=== PATIENT | female | born 1940 | race Caucasian/White ===

== ENCOUNTER 2022-03-01 10:43 | Emergency (ER) | payer OTHER ==
[~2022-03-01] VITALS: Ht 162.6 cm; Wt 59.0 kg
--- NOTE | 2022-03-01 10:45 | NUR ---
PT IN BED ABLE TO ANSWER QUESTIONS AND MAKE NEEDS KNOWN. ON ROOM AIR BREATHING IS EVEN AND UNLABORED. HX OF ARTHRITIS AND HAS FALLEN TWICE. NO OBSERVABLE INJURIES TO THE BODY. COMPLAINS OF PAIN ON THE HEAD CT ORDERED.
--- NOTE | 2022-03-01 11:33 | NUR ---
TRANSPORT ARRIVED TO TAKE PT FOR HEAD CT
[2022-03-01 11:34] LABS: BASOPHILS # (AUTO) 0.1 K/uL (0.0-0.2); BASOPHILS % (AUTO) 0.6 % (0.0-2.0); EOSINOPHILS % (AUTO) 1.6 % (0.0-6.0); HEMATOCRIT 28 % (33-45); HEMOGLOBIN 8.9 g/dL (11.5-14.8); LYMPHOCYTES # (AUTO) 0.9 K/uL (0.8-4.8); LYMPHOCYTES % (AUTO) 9.7 % (20.0-44.0); MEAN CORPUSCULAR HGB CONC 32 g/dl (31.0-36.0); MEAN CORPUSCULAR VOLUME 81 fL (82-100); MONOCYTES # (AUTO) 0.6 K/uL (0.1-1.30); MONOCYTES % (AUTO) 6.5 % (2.0-12.0); NEUTROPHILS # (AUTO) 7.8 K/uL (1.8-8.9); NEUTROPHILS % (AUTO) 81.6 % (43.0-81.0); PLATELET COUNT (AUTO) 220 K/uL (150-450); RED BLOOD CELL COUNT(AUTO) 3.44 MIL/uL (4.0-5.2); WHITE BLOOD COUNT (AUTO) 9.5 K/uL (4.3-11.0)
[2022-03-01 11:42] LABS: CALCIUM, SERUM 8.6 mg/dL (8.5-10.1); CARBON DIOXIDE 28 mmol/L (21-32); CHLORIDE 103 mmol/L (98-107); GLUCOSE 110 mg/dL (74-106); POTASSIUM 3.7 mmol/L (3.5-5.1); SODIUM SERUM 137 mmol/L (136-145); UREA NITROGEN, BLOOD 19 mg/dL (7-18)
[2022-03-01 11:49] LABS: ALANINE AMINOTRANSFERASE 18 U/L (12-78); ALBUMIN 3.3 g/dL (3.4-5.0); ALKALINE PHOSPHATASE 66 U/L (46-116); ASPARTATE AMINOTRANSFERASE 27 U/L (15-37); BILIRUBIN,DIRECT 0.1 mg/dL (0.0-0.2); BILIRUBIN,TOTAL 0.2 mg/dL (0.2-1.0); TOTAL PROTEIN, SERUM 6.4 g/dL (6.4-8.2)
--- NOTE | 2022-03-01 13:30 | NUR ---
CALLED [facility], AWAITING MD CALL BACK
--- NOTE | 2022-03-01 14:25 | NUR ---
URINE AND COVID COLLECTED
--- NOTE | 2022-03-01 15:01 | NUR ---
AWAITING COVID,URINE, AND REPEAT TROP LEVELS BEFORE TRANSFER TO [employer]
[2022-03-01 15:35] LABS: BILIRUBIN,URINE NEGATIVE (NEGATIVE); COLOR,URINE YELLOW (YELLOW); LEUKOCYTE ESTERASE ,URINE NEGATIVE (NEGATIVE); NITRITE, URINE NEGATIVE (NEGATIVE); PROTEIN,URINE NEGATIVE (NEGATIVE); UGLUCOSE NEGATIVE (NEGATIVE); UROBILINOGEN,URINE 0.2 EU/dL (0.2)
--- NOTE | 2022-03-01 16:18 | NUR ---
PT ACCEPTED TO [facility] ED UNDER THE CARE OF DR. VEGA GIVE REPORT TO [phone] [facility] ETA [phone]
--- NOTE | 2022-03-01 16:31 | NUR ---
REPORT GIVEN LUNA
[2022-03-01 18:00] VITALS: BP 130/68
--- NOTE | 2022-03-01 18:04 | NUR ---
[facility] TRANSPORT AT BED SIDE
== END 2022-03-01 18:53 | disposition short-term general hospital (02) ==
LOC: ER 10:48
DX: R53.1 Weakness (principal); R26.2 Difficulty in walking, not elsewhere classified; Z20.822 Contact with and (suspected) exposure to COVID-19; R77.8 Other specified abnormalities of plasma proteins; K21.9 Gastro-esophageal reflux disease without esophagitis; I10 Essential (primary) hypertension; M19.90 Unspecified osteoarthritis, unspecified site; Z88.6 Allergy status to analgesic agent
CPT/HCPCS: 99285; 70450; 71045; 87426; 93005; 85025; 80048; 80076; 81003; 36415; 84484 ×2; 85730; C9803